=== PATIENT | female | born 1980 | race Caucasian/White ===

== ENCOUNTER 2021-08-18 00:37 | Day surgery (SDC) | payer BC, SELFPAY ==
[2021-08-12 13:34] VITALS: BMI 39.9
--- NOTE | 2021-08-12 13:45 | PC.NURSE ---
Report to the Outpatient Waiting Room, entrance under the green pavilion located off [facility], at time 0845 on date 08/18/21. OR Time: 0945. - You and your visitor will be asked a series of questions to screen for COVID 19 for your protection. - A mask is required within the hospital. One visitor will be allowed to accompany the patient into the hospital. Patients visitor will be instructed to remain with patient at all times or leave the building. We will allow the visitor to come back to the postoperative area when patient is ready. Preoperative COVID Testing Requirements: No COVID Test needed if: (proof is required; if not received patient will have Rapid Test prior to entry) - Patient has received COVID Vaccine at least 14 days prior to procedure date or - Patient has positive COVID test result within last 90 days of surgery date. COVID Test needed if above criteria is not met Patients may have LIGHT BREAKFAST MORNING OF SURGERY Take the following medications with a SIP of water the morning of surgery: PRESCRIBED Medications to discontinue per physician: N/A Date to take last dose: N/A Please no make-up, nail faroese, hairspray, perfume, deodorant, or body powder the day of surgery. No jewelry (including any body piercings) or valuables the day of surgery, leave them at home. Please take a shower or bath the night before, or the morning of, surgery with an antibacterial soap. Wear comfortable, loose fitting clothing. - Jewelry must be removed prior to entering the operating room. Rings and piercings that are not removed may be cut off. - The hospital will not accept responsibility for valuables. - Please leave all valuables, including medications, at home the day of surgery. YOU MAY DRIVE YOURSELF HOME AFTER SURGERY Follow any additional instructions given to you from your surgeon. Telephone instructions given to CESAR WOODY and asked if any additional questions and then verbalized understanding. Patient advised to call surgeon office or pre surgery nurse liaison [phone] if any additional questions.
--- NOTE | 2021-08-18 07:16 | WPDHPUPDATE1 ---
History and Physical Update Update Date/Time: 08/18/21 07:16 History and Physical has been reviewed, including an updated exam of the patient. There are NO changes in the patient's condition. Risks, benefits, and alternatives have been discussed and questions answered. Patient agrees to proceed with procedure.
[2021-08-18 10:46] VITALS: BP 150/91; PULSE 92; RESP 16; TEMP 36.5; O2SAT 100
[2021-08-18 11:59] VITALS: BP 145/85; PULSE 86; RESP 17; O2SAT 100
[2021-08-18 12:10] VITALS: BP 162/92; PULSE 91; RESP 17; O2SAT 100
[2021-08-18 12:20] VITALS: BP 145/85; PULSE 70; RESP 17; O2SAT 98
[2021-08-18 12:31] VITALS: BP 97/55; PULSE 67; RESP 17; O2SAT 98
[2021-08-18 12:40] VITALS: BP 111/72; PULSE 78; RESP 18; O2SAT 99
--- NOTE | 2021-08-18 13:12 | W.PM.PROC2 ---
Procedure Note - Detailed Date of Procedure 08/18/21 Pre-op Diagnosis Rt Carpal Tunnel Syndrome Post-op Diagnosis Same Procedure Performed Right open carpal tunnel release Surgeon Gerardo Robledo MD Anesthesia Local Description of Procedure The right volar wrist was marked with the patient in the holding area. She was taken to the operating room where she was placed supine on the operating table. A time-out was held confirmed. The extremity was prepped and draped usual fashion. The site was marked for the incision and locally infiltrated with 1% lidocaine with epinephrine. The tourniquet was applied and inflated to 250 mmHg. The incision was made as marked and dissection was carried bluntly through the subcutaneous tissue to the palmar aponeurosis. This and the transverse retinaculum were incised with a 15 blade. Under 3 point retraction the ligament was divided distally and proximally to completely release it. There was no unusual anatomy noted. The wound was closed with interrupted 5 0 nylon suture. A small bandage applied as usual. She is discharge instructions wound care follow-up she has a prescription for hydrocodone/[id number] number 7 Estimated Blood Loss 2 Drains No Packing No Pathology None sent Complications No immediate complications Condition Stable Disposition Same day
== END 2021-08-18 13:01 | disposition home or self-care (01) ==
PROVIDERS: PCP Nurse Practitioner Family; Visit Provider Plastic Surgery
PROC: (CPT 64721; principal; 2021-08-18 11:45)
DX: G56.01 Carpal tunnel syndrome, right upper limb (principal); G40.909 Epilepsy, unspecified, not intractable, without status epilepticus
CPT/HCPCS: 64721; A9270

== ENCOUNTER 2021-09-08 01:12 | Day surgery (SDC) | payer BC, SELFPAY ==
[2021-09-05 11:24] VITALS: BMI 39.9
--- NOTE | 2021-09-05 11:28 | PCDIET ---
Report to the Outpatient Waiting Room, entrance under the green pavilion located off [facility], at time __1215_ on date _09-08-21. OR Time: _1315_. - You and your visitor will be asked a series of questions to screen for COVID 19 for your protection. - Only one visitor is allowed at this time. - The patient visitor is requested to leave or wait in car when not with patient. - A mask is required within the hospital. Eat breakfast and a light lunch. Take the following medications with a SIP of water the morning of surgery: ___Take meds as usually do Medications to discontinue per physician None Date to take last dose Please no make-up, nail sinhala, hairspray, perfume, deodorant, or body powder the day of surgery. No jewelry (including any body piercings) or valuables the day of surgery, leave them at home. Please take a shower or bath the night before, or the morning of, surgery with an antibacterial soap. Wear comfortable, loose fitting clothing. Children are encouraged to wear pajamas. - Jewelry must be removed prior to entering the operating room. Rings and piercings that are not removed may be cut off. - The hospital will not accept responsibility for valuables. - Please leave all valuables, including medications, at home the day of surgery. If you are going home after surgery, a licensed day haul or farm charter bus driver must drive you home. - NO public transportation without another adult. - We recommend that an adult stay with you for 24 hours following discharge. - We also recommend that you do not drive, make important decision, drink alcoholic beverages, or take any drugs that were not prescribed by your health care provider for at least 24 hours after your discharge time. For Pediatric surgeries, we recommend two adults accompany the child home (only one inside the building at this time). Follow any additional instructions given to you from your surgeon. If you or anyone in your household have experienced Covid symptoms in the past week, please notify your surgeon or the nurse liaison at the phone number below for possible testing. Telephone instructions given to ___Patient and asked if any additional questions and then verbalized understanding. Patient advised to call surgeon office or pre surgery nurse liaison [phone] if any additional questions.
[2021-09-08] VITALS (8 sets, daily range): BP systolic 134–151; BP diastolic 78–92; PULSE 92–99; RESP 16–20; TEMP 36.1; O2SAT 97–100
--- NOTE | 2021-09-08 07:15 | WPDHPUPDATE1 ---
History and Physical Update Update Date/Time: 09/08/21 07:15 History and Physical has been reviewed, including an updated exam of the patient. There are NO changes in the patient's condition. Risks, benefits, and alternatives have been discussed and questions answered. Patient agrees to proceed with procedure.
[2021-09-08] MEDS: LIDO 1%/EPINEPHRINE 1:100,000 50 ML VIAL 7 ML INFILTRATE (12:36)
--- NOTE | 2021-09-08 13:41 | W.PM.PROC2 ---
Procedure Note - Detailed Date of Procedure 09/08/21 Pre-op Diagnosis Left carpal tunnel syndrome Post-op Diagnosis Same Procedure Performed Left open carpal tunnel release Surgeon Gerardo Robledo MD Anesthesia Local Description of Procedure The left carpal canal was marked on patient holding area. She was then taken to the operating room where she was placed supine on the operating table. Time-out was held and confirmed. The extremity was prepped and draped in usual fashion. The tourniquet was applied but not utilized. The site was marked for the incision and locally infiltrated with 1% lidocaine with epinephrine. Sometimes allowed for hemostatic effect. The incision was made as marked and dissection was carried bluntly through the subcutaneous tissue to the palmar aponeurosis. This was incised with scissors. There was a layer of fatty tissue beneath that that was bluntly. The transverse retinaculum was identified and incised with a 15. Blade. With 3 point retraction and placed the ligament was divided distally and then proximally for complete release. There was no unusual anatomy noted. The wound was closed with interrupted 5 0 nylon suture. The patient is being discharged home with instructions in wound care and follow-up. She has a prescription for hydrocodone 5/325 7.. Estimated Blood Loss 3 Tourniquet Time 0 Drains No Packing No Pathology None sent Complications No immediate complications Condition Stable Disposition Same day
== END 2021-09-08 14:13 | disposition home or self-care (01) ==
PROVIDERS: PCP Nurse Practitioner Family; Visit Provider Plastic Surgery
PROC: (CPT 64721; principal; 2021-09-08 13:00)
DX: G56.02 Carpal tunnel syndrome, left upper limb (principal); M79.89 Other specified soft tissue disorders; M79.642 Pain in left hand; M79.641 Pain in right hand; R20.2 Paresthesia of skin; G40.909 Epilepsy, unspecified, not intractable, without status epilepticus; K21.9 Gastro-esophageal reflux disease without esophagitis
CPT/HCPCS: 64721; A9270

== ENCOUNTER 2021-09-24 15:25 | Observation (INO) | payer BC, SELFPAY ==
--- NOTE | ~2021-09-24 | CT_ITS ---
EXAMINATION: CT abdomen pelvis wo con DATE: 09/24/2021 16:07 INDICATION: Right lower quadrant abdominal pain and nausea. TECHNIQUE: Computed tomography (CT) of the abdomen and pelvis was performed without intravenous contr ast. The dose-length product was 1339.82 mGy-cm. Automated exposure control and iterative reconstruct ion technique were employed. COMPARISON: None. FINDINGS: Lung bases are unremarkable. Heart size normal. No significant pleural or pericardial effus ion. No significant vascular abnormality. No lymphadenopathy. There is diffuse hepatic steatosis. The spleen, pancreas, adrenal glands and kidneys are unremarkable . Gallbladder is present. Nonobstructive bowel gas pattern. The appendix is mildly thickened with per iappendiceal inflammation, consistent with acute uncomplicated appendicitis. Status post hysterectomy . No abnormal pelvic masses or fluid collections. No free air. Mild osteoarthritis of the hips. IMPRESSION: 1. Acute uncomplicated appendicitis. Reviewed, dictated and finalized at location A.
[2021-09-24 15:32] VITALS: BP 146/102; PULSE 126; RESP 16; TEMP 36.4; O2SAT 99
[2021-09-24 15:58] LABS: Basophils Percent Auto 0.2 % (0.2-1.2); Eosinophils Percent Auto 0.1 % (0-4.4); Hematocrit 40.5 % (37.0-47.0); Hemoglobin 13.6 g/dL (12.0-15.0); Immature Granulocyte Absolute 0.07 K/mm3 (0.00-0.031); Immature Granulocyte Percent A 0.4 % (0-0.5); Lymphocytes Absolute Auto 1.95 K/mm3 (0.9-3.2); Lymphocytes Percent Auto 11.1 % (18.3-44.2); Mean Corpuscular HGB Conc 33.6 g/dl (32-36); Mean Corpuscular Hemoglobin 30.8 pg (26-34); Mean Corpuscular Volume 91.8 fl (80-100); Mean Platelet Volume 8.7 fl (7.4-10.4); Monocytes Absolute Auto 0.7 K/mm3 (0.1-0.6); Monocytes Percent Auto 3.8 % (2.6-8.5); Neutrophils Absolute Auto 14.8 K/mm3 (1.3-6.7); Neutrophils Percent Auto 84.4 % (45.5-73.1); Platelet Count Result 420 k/mm3 (150-375); Red Blood Count 4.41 M/mm3 (4.2-5.4); Red Cell Distribution Width 12.1 % (11.5-14.5); White Blood Count 17.5 K/mm3 (4.5-10.0)
[2021-09-24 16:09] LABS: Alanine Aminotransferase 57 U/L (6-35); Albumin Level 4.6 g/dL (3.5-5.1); Alkaline Phosphatase 112 U/L (38-126); Anion Gap 10 mmol/L (8-16); Aspartate Amino Transferase 52 U/L (14-36); Bilirubin,Total 0.7 mg/dL (0.2-1.3); Blood Urea Nitrogen 8 mg/dL (7-17); Calcium 9.3 mg/dL (8.4-10.2); Carbon Dioxide 26 mmol/L (22-30); Chloride 99 mmol/L (98-107); Estimated CRCL calculation 108 ml/min; Estimated Glomerular Filt Rate > 60; Glucose 121 mg/dL (65-110); Lipase 41 U/L (23-300); Potassium 4.1 mmol/L (3.4-5.0); Sodium 135 mmol/L (137-145)
[2021-09-24] MEDS: LACTATED RINGERS 1,000 ML 999 ML IV CONT ×2 (16:11→16:46)
[2021-09-24 16:13] LABS: Appearance Urine Clear (Clear); Bilirubin Urine Negative (Negative); Blood Urine Trace-lysed (Negative); Color Urine Yellow (Yellow); Glucose Urine UA Negative (Negative); Ketones Urine Negative (Negative); Leukocyte Esterase Ur Negative LEU/UL (Negative); Nitrate Urine Negative (Negative); Protein Urine 1+ mg/dL (Negative); Urobilinogen Urine 0.2 mg/dL (<2.0)
[2021-09-24] MEDS: ONDANSETRON INJ 4 MG/2 ML VIAL IV PUSH (16:15)
--- NOTE | 2021-09-24 16:15 | ED.ABDPAIN ---
HPI - Abdominal Pain General Chief Complaint: Abdominal Pain Stated Complaint: abdominal pain - RLQ tenderness Time Seen by Provider: 09/24/21 15:45 History of Present Illness HPI narrative: Since last night, patient had some severe periumbilical pain that was nonradiating, felt like she was just hungry, with some nausea and loose stools, and then this morning the pain seemed to move to the right lower quadrant, worse when she lies flat, never had pain like this before. States that when she urinates she also has this pain. Related Data Home Medications Medication Instructions Recorded Confirmed levetiracetam 1,000 mg tablet 1,000 mg PO DAILY 03/17/21 09/08/21 (Keppra) levetiracetam 500 mg tablet 500 mg PO DAILY 03/17/21 09/08/21 (Keppra) Allergies Allergy/AdvReac Type Severity Reaction Status Date / Time No Known Allergies Allergy Verified 09/24/21 15:46 Review of Systems Review of Systems: CONST: No fever. HEENT: No sore throat C/V: No chest pain RESP: No cough GI: Reports abdominal pain, nausea : dysuria. M/S: No joint pain. SKIN: No rash. NEURO: [No headache or focal numbness or weakness] PSYCH: [No depression] [facility] Past Medical History Medical History Anxiety with depression BMI 37.0-37.9, adult BMI over 35 Carpal tunnel syndrome Cervical radicular pain Cervicalgia Elevated C-reactive protein (CRP) (08/06/20) CRP elevated at 23.6 with normal less than 8 08/06/2020 Elevated sedimentation rate (08/06/20) level elevated at 25 on 08/06/2020 Encounter to establish care Lumbago with sciatica, right side Nasal congestion Seizures Family History Family History Father No problems noted. Social History Social History Smoking packs per day: 2 Smoking cigarettes per day: 40.0 Years smoked: 25 Smoking pack-years: 50.00 Smoking status: Former smoker Tobacco type: cigarettes Smoking end date: 04/07/19 Alcohol intake: never Alcohol use details: rarely Substance use: never Substance use type: does not use Spiritual care concerns: No Exam Narrative: EXAMINATION OF ORGAN SYSTEMS/BODY AREAS: Constitutional: Vital signs per nursing GENERAL: Resting comfortably in bed, very talkative HEAD: Normal with no signs of head trauma. EYES: EOMI, conjunctiva normal ENT: Hearing grossly intact LUNGS: Nonlabored breathing. HEART: Tachycardic ABD: [Soft], [tender to palpation] right lower quadrant EXT: Normal range of motion SKIN: [No rashes or lesions.] NEURO: [Alert and oriented x 3. No gross focal sensory or strength deficits.] PSYCH: Normal affect Course Course Emergency Course: 41-year-old female presenting right lower quadrant pain, vital signs tachycardic, exam showing well-appearing patient with right lower quadrant tenderness, concern for appendicitis versus UTI, she is given pain medication and antiemetic with improvement in symptoms, and IV fluids, CT does show appendicitis, case discussed with surgeon Dr. Guevara will admit patient for likely surgery tomorrow, patient updated on plan and diagnosis. Vital Signs Vital signs: Vital Signs Temperature 97.6 F 09/24/21 15:32 Pulse Rate 126 H 09/24/21 15:32 Respiratory Rate 16 09/24/21 15:32 Blood Pressure 146/102 H 09/24/21 15:32 Pulse Oximetry 99 09/24/21 15:32 Oxygen Delivery Room Air 09/24/21 15:32 Temperature 97.6 F 09/24/21 15:32 Pulse Rate 126 H 09/24/21 15:32 Respiratory Rate 16 09/24/21 15:32 Blood Pressure 146/102 H 09/24/21 15:32 Pulse Oximetry 99 09/24/21 15:32 Oxygen Delivery Room Air 09/24/21 15:32 MDM - Abdominal Pain Differential Diagnosis Differential diagnosis: Likely acute appendicitis, calculus of kidney, gastroenteritis and other (UTI) Lab Data Result diagrams: 09/24/21 15:51
[2021-09-24 16:31] LABS: Add Urine Microscopic? YES; Bacteria Urine Trace /hpf; Squamous Epithelial Cell Urine Few /hpf (Few); WBC Urine 0-3 /hpf
[2021-09-24 16:39] LABS: INR 1.1; Prothrombin Time 13.3 Seconds (11.1-14.7)
[2021-09-24] MEDS: MORPHINE SULFATE (*CRX) 4 MG/ML INJ IV PUSH ×3 (16:45→20:48)
[2021-09-24] MEDS: metroNIDAZOLE 500 MG/ISO 100ML 500 MG/100 ML BAG 100 MG IVPB (16:46)
[2021-09-24 16:50] VITALS: BP 130/88; PULSE 106; RESP 16; O2SAT 98
[2021-09-24 17:39] LABS: Lactic Acid Reflex 3.1 mmol/L (0.7-2.0)
--- NOTE | 2021-09-24 17:53 | WPDANESEPP ---
Anes - Eval Pre Procedure Date/Time: 09/24/21 17:53 Pre Op Diagnosis: abdominal pain - RLQ tenderness Patient Data Age: 41 Gender: F Height: 1.65 m Weight: 106.8 kg Last Vital Signs Temp 36.4 C 09/24/21 15:32 Pulse 106 H 09/24/21 16:50 Resp 16 09/24/21 16:50 BP 130/88 09/24/21 16:50 Pulse Ox 98 09/24/21 16:50 O2 Del Method Room Air 09/24/21 15:32 Allergies Allergy/AdvReac Type Severity Reaction Status Date / Time No Known Allergies Allergy Verified 09/24/21 15:46 Home Medications Medication Instructions Recorded Confirmed Type duloxetine 60 mg capsule,delayed 60 mg PO DAILY #30 caps 03/17/21 09/08/21 Rx release (Cymbalta) levetiracetam 1,000 mg tablet 1,000 mg PO DAILY 03/17/21 09/08/21 History (Keppra) levetiracetam 500 mg tablet 500 mg PO DAILY 03/17/21 09/08/21 History (Keppra) cyclobenzaprine 10 mg tablet 10 mg PO BID PRN muscle spasm #60 06/30/21 09/05/21 Rx tabs hydrocodone 5 mg-acetaminophen 325 1 tablet PO Q6H PRN pain #7 tabs 09/08/21 Rx mg tablet tramadol 50 mg tablet 50 mg PO Q6H PRN pain #60 tabs 09/23/21 Rx Laboratory Tests 09/24/21 09/24/21 09/24/21 15:51 15:51 15:56 WBC 17.5 K/mm3 H K/mm3 (4.5-10.0) RBC 4.41 M/mm3 M/mm3 (4.2-5.4) Hgb 13.6 g/dL g/dL (12.0-15.0) Hct 40.5 % % (37.0-47.0) MCV 91.8 fl fl (80-100) MCH 30.8 pg pg (26-34) MCHC 33.6 g/dl g/dl (32-36) RDW 12.1 % % (11.5-14.5) Plt Count 420 k/mm3 H k/mm3 (150-375) MPV 8.7 fl fl (7.4-10.4) Immature Gran % (Auto) 0.4 % % (0-0.5) Neut % (Auto) 84.4 % H % (45.5-73.1) Lymph % (Auto) 11.1 % L % (18.3-44.2) Monona % (Auto) 3.8 % % (2.6-8.5) Eos % (Auto) 0.1 % % (0-4.4) Baso % (Auto) 0.2 % % (0.2-1.2) Lymph # (Auto) 1.95 K/mm3 K/mm3 (0.9-3.2) [place] # (Auto) 0.7 K/mm3 H K/mm3 (0.1-0.6) Eos # (Auto) 0.0 K/mm3 K/mm3 (0-0.3) Baso # (Auto) 0.0 K/mm3 K/mm3 (0.0-0.1) Abs Immat Gran (auto) 0.07 K/mm3 H K/mm3 (0.00-0.031) Absolute Neuts (auto) 14.8 K/mm3 H K/mm3 (1.3-6.7) Absolute Nucleated RBC 0.0 K/mm3 K/mm3 (0.0-0.012) Nucleated RBC % 0.0 % % (0.0-0.2) PT INR APTT Sodium 135 mmol/L L mmol/L (137-145) Potassium 4.1 mmol/L mmol/L (3.4-5.0) Chloride 99 mmol/L mmol/L (98-107) Carbon Dioxide 26 mmol/L mmol/L (22-30) Anion Gap 10 mmol/L mmol/L (8-16) BUN 8 mg/dL mg/dL (7-17) Creatinine 0.70 mg/dL mg/dL (0.7-1.0) Estim Creat Clear Calc 108 ml/min ml/min Estimated GFR > 60 (59 - ) Glucose 121 mg/dL H mg/dL (65-110) Lactic Acid Calcium 9.3 mg/dL mg/dL (8.4-10.2) Total Bilirubin 0.7 mg/dL mg/dL (0.2-1.3) AST 52 U/L H U/L (14-36) ALT 57 U/L H U/L (6-35) Alkaline Phosphatase 112 U/L U/L (38-126) Total Protein 9.0 g/dL H g/dL (6.3-8.2) Albumin 4.6 g/dL g/dL (3.5-5.1) Lipase 41 U/L U/L (23-300) Urine Color Yellow (Yellow) Urine Appearance Clear (Clear) Urine pH 6.0 (5.0-9.0) Ur Specific Benson 1.010 (1.001-1.035) Urine Protein 1+ mg/dL H mg/dL (Negative) Urine Glucose (UA) Negative mg/dL mg/dL (Negative) Urine Ketones Negative mg/dL mg/dL (Negative) Ur Blood (Man) Trace-lysed (Negative) Urine Nitrate Negative (Negative) Urine Bilirubin Negative (Negative) Urine Urobilinogen 0.2 mg/dL mg/dL (<2.0) Leukocyte Esterase Rfl Negative BRYAN/UL BRYAN/UL (Negative) Urine WBC 0-3 /hpf /hpf Ur Squamous Epith Cells Few /hpf /hpf
[2021-09-24 18:10] VITALS: BP 150/95; PULSE 107; RESP 18; O2SAT 98
[2021-09-24 18:38] VITALS: BP 150/95; PULSE 107; RESP 18; O2SAT 98
[2021-09-24 18:58] VITALS: BMI 38.5
[2021-09-24 19:34] VITALS: BP 130/84; PULSE 108; RESP 18; TEMP 36.3; O2SAT 98
[2021-09-24 20:25] LABS: Reflex Lactic Acid Yes or No Add Lactic
[2021-09-24] MEDS: LACTATED RINGERS 1,000 ML 125 ML IV CONT (20:49)
[2021-09-24 20:54] LABS: Lactic Acid 1.7 mmol/L (0.7-2.0)
[2021-09-25] VITALS (14 sets, daily range): BP systolic 102–175; BP diastolic 55–112; PULSE 65–100; RESP 16–20; TEMP 35.9–36.9; O2SAT 92–100
[2021-09-25] MEDS: MORPHINE SULFATE (*CRX) 4 MG/ML INJ IV PUSH ×3 (00:39→08:30)
[2021-09-25] MEDS: LACTATED RINGERS 1,000 ML 125 ML IV CONT (03:12)
--- NOTE | 2021-09-25 08:48 | PM.IMHP ---
H&P: HPI History of Present Illness Date/Time: 09/25/21 08:48 Chief Complaint: Right lower quadrant pain. Narrative: This is a 41-year-old woman who presented to the emergency department yesterday with right lower quadrant pain that started 09/23/2021. She states that she began feeling hunger pains in then she noticed pain localized to the right lower quadrant. She was having some chills and nausea, but denies any vomiting or change in bowel habits. She has never experienced anything like this in the past. In the emergency department she was noted to have an elevated white blood count and CT showed evidence of acute appendicitis. She was started on Zosyn and was admitted to the hospital for further treatment. Review of Systems Review of Systems: All systems reviewed & are unremarkable except as noted in HPI and below Constitutional: Constitutional: Reports chills and Denies fever(s) Eyes: Eyes: Denies change in vision ENT: Denies hearing loss, Denies neck pain and Denies sore throat Cardiovascular: Cardiovascular: Denies chest pain and Denies dyspnea Respiratory: Respiratory: Denies cough, Denies dyspnea and Denies wheezing Gastrointestinal: Gastrointestinal: Reports as per HPI Genitourinary: Genitourinary: Denies hematuria and Denies dysuria Musculoskeletal: Musculoskeletal: Denies arthralgias, Denies joint swelling and Denies neck pain Allergic/Immunologic: Allergic/Immunologic: Denies wheezing [facility] Past Medical History Medical History (Updated 09/25/21 @ 08:53 by Charles Guevara DO) Anxiety with depression BMI over 35 Carpal tunnel syndrome Cervical radicular pain Cervicalgia Elevated C-reactive protein (CRP) (08/06/20) CRP elevated at 23.6 with normal less than 8 08/06/2020 Elevated sedimentation rate (08/06/20) level elevated at 25 on 08/06/2020 Encounter to establish care Lumbago with sciatica, right side Nasal congestion Seizures Surgical History Surgical History (Updated 09/25/21 @ 08:51 by Charles Guevara DO) History of carpal tunnel release History of hysterectomy History of neck surgery Family History Family History (Updated 09/25/21 @ 08:51 by Charles Guevara DO) Father Heart disease Social History Social History Smoking packs per day: 2 Smoking cigarettes per day: 40.0 Years smoked: 25 Smoking pack-years: 50.00 Smoking status: Former smoker Tobacco type: cigarettes Second hand tobacco smoke exposure: Yes Alcohol intake: never Alcohol use details: rarely Substance use: never Substance use type: does not use Spiritual care concerns: No Meds Home Medications and Allergies Home Medications Medication Instructions Recorded Confirmed Type Unisom (diphenhydramine) 100 mg PO HS 09/24/21 09/24/21 History cyclobenzaprine 10 mg tablet 1 tablet PO BID PRN Muscle 09/24/21 09/24/21 History Spasticity duloxetine 60 mg capsule,delayed 60 mg PO DAILY 09/24/21 09/24/21 History release levetiracetam 750 mg tablet 2 tablet PO DAILY 09/24/21 09/24/21 History Allergies Allergy/AdvReac Type Severity Reaction Status Date / Time No Known Allergies Allergy Verified 09/24/21 15:46 Vital Signs Vital Signs - 24 hr 09/24/21 15:32 09/24/21 16:50 09/24/21 18:10 Temperature 36.4 C Pulse Rate 126 H 106 H 107 H Respiratory Rate 16 16 18 Blood Pressure 146/102 H 130/88 150/95 H Pulse Oximetry 99 98 98 Oxygen Delivery Room Air 09/24/21 18:38 09/24/21 19:34 09/25/21 04:10 Temperature 36.3 C L 36.0 C L Pulse Rate 107 H 108 H 97 Respiratory Rate 18 18 17 Blood Pressure 150/95 H 130/84 156/97 H Pulse Oximetry 98 98 94 Oxygen Delivery 09/25/21 08:32 09/25/21 08:45 Temperature Pulse Rate Respiratory Rate Blood Pressure 168/90 H Pulse Oximetry 96 Oxygen Delivery Room Air Exam Const: General: alert; No acute distress Orientation/conscio
--- NOTE | 2021-09-25 10:21 | P.PNAN_ITS ---
Anes - Eval Final PreProcedure Day of Procedure 09/25/21 10:21 Patient weight: obese Heart: regular rate and rhythm Lungs: clear to auscultation Airway: Mallampati scale class II and other (C3-7 disc replacement) Neurological: alert and oriented Last oral intake: >/= 8 hours ASA classification: III Emergent: no Anesthetic plan: proceed Anesthesia type and monitoring: general ETT and standard monitoring Results Review: All pre-operative results and documents have been reviewed as part of the pre- operative evaluation. Informed Consent: The patient's anesthetic plan and its attendant risks and benefits were discussed with the patient/family/POA. Questions were solicited and answers provided to the satisfaction of the patient/family/POA.
[2021-09-25] MEDS: LIDO 1%/EPINEPHRINE/PF 1:200,000 30 ML VIAL XX (10:42)
--- NOTE | 2021-09-25 11:18 | W.PM.PROC2 ---
Procedure Note - Detailed Date of Procedure 09/25/21 Pre-op Diagnosis Acute appendicitis, sepsis Post-op Diagnosis Same Procedure Performed Laparoscopic appendectomy Surgeon Charles Guevara, DO Anesthesia General and Local (0.5% bupivicaine with epinephrine) Indications This is a 41-year-old woman who presented to the emergency department on 09/24/2021 with complaints of right lower quadrant pain that started 1 day prior. She was noted to have signs of sepsis with an elevated white blood count and tachycardia. CT showed evidence of acute appendicitis. She was admitted and placed on IV Zosyn. Discussions were made with the patient about treatment options and decision was made to proceed with laparoscopic appendectomy, possible open. Findings Laparoscopic appendectomy was performed. The appendix was in a slightly retrocecal location and appeared to be curled behind the cecum. It appeared dilated and inflamed. The base of the appendix appeared healthy and viable. The appendix was removed and sent to the lab for pathology. There was some bleeding from the mesoappendix as the appendix was removed. Initially this was controlled with a 5 mm clip clinical biostatistics director over the staple line where the bleeding was noted. There still seemed to be some mild oozing from this location but there was no more pulsatile bleeding. Surgiflo was then sprayed over this area to help control bleeding. Hemostasis then appeared adequate. Description of Procedure Procedure as well as risks, benefits, and alternatives were explained to the patient. The patient agreed to proceed. Written consent was obtained and placed in chart prior to procedure. The patient was brought back to surgical suite. She was placed supine on operating table. Time-out was done to confirm the patient and procedure. The patient was then intubated by the Anesthesia Department. Her abdomen was prepped and draped in sterile fashion using chlorhexidine prep. A 5 mm incision was made just to the left of the patient's umbilicus and a 5 mm Optiview trocar was advanced through the abdominal layers under direct visualization. Once inside the peritoneal cavity, carbon dioxide insufflation was used to create a pneumoperitoneum. The camera was inserted and the abdomen was inspected. No immediate abnormalities were identified. The patient was then placed in slight Trendelenburg position and rotated to the left. A 5 mm incision was made in the suprapubic region in midline and a 5 mm trocar was inserted under direct visualization. A 12 mm incision was made in the left lower quadrant and a 12 mm trocar was inserted under direct visualization. The right lower quadrant was carefully inspected. The cecum was identified and then this was traced back to the appendix. The appendix was identified and grasped at the mesoappendix and lifted anteriorly. Careful blunt dissection was carried out at the base of the appendix through the mesoappendix using a [place] grasper. An Endo-JENNIFER 45 mm blue load stapler was then advanced across the base of the appendix and clamped and fired. A white reload was then clamped across the mesoappendix and fired. This freed up our appendix completely. It was then placed in an EndoCatch bag and removed through the left lower quadrant port. The staple lines were then inspected. There was bleeding along the mesoappendix staple line. A 5 mm Endoclip clinical biostatistics director was then used to place several clips along the mesoappendix staple line to help control bleeding. Surgiflo was then sprayed over the staple line. Hemostasis appeared adequate and the staple lines appeared secure. The area was then irrigated with sterile saline. The pelvis was then carefully inspected and irrigated with sterile saline as well and the remainder of the abdomen was carefully inspected. The patient was then flattened out in bed. One final inspection was made around the abdominal cavity and no other abnormalities were seen. The left lower
[2021-09-25] MEDS: LACTATED RINGERS 1,000 ML 30 ML IV CONT (11:21)
--- NOTE | 2021-09-25 11:24 | PM.DS ---
DS: Admitting Diagnosis Discharge Date 09/25/2021 Admitting Diagnosis Acute appendicitis, sepsis DS: Discharge Diagnosis Discharge Diagnosis (1) Acute appendicitis: Qualifiers: Acute appendicitis type: with localized peritonitis Appendicitis gangrene presence: without gangrene Appendicitis perforation presence: without perforation Appendicitis abscess presence: without abscess Qualified Code(s): K35.30 - Acute appendicitis with localized peritonitis, without perforation or gangrene Code(s): K35.80 - Unspecified acute appendicitis Status: Acute (2) Sepsis: Code(s): A41.9 - Sepsis, unspecified organism Status: Acute (3) Adult BMI 38.0-38.9 kg/sq m: Code(s): Z68.38 - Body mass index [BMI] 38.0-38.9, adult Status: Acute DS: Summary Hospital Course Reason for hospitalization: Acute appendicitis Hospital Course: This is a 41-year-old woman who presented to the emergency department on 09/24/2021 with right lower quadrant abdominal pain. She was noted to have signs of sepsis and CT showed evidence of acute appendicitis. She was placed on Zosyn and admitted to the hospital. She then underwent laparoscopic appendectomy on 09/25/2021. She was returned to the surgical floor postoperatively. Diet and activity were advanced as tolerated. She was discharged once her pain was adequately controlled, vitals remained stable, she was tolerating a regular diet, and ambulating in the halls. Status at Discharge Functional status at discharge: independent ambulation Overall status at discharge: patient is progressing back to baseline Time Spent with Patient Time attestation: Total time spent providing and/or coordinating discharge services: Time spent: Less than 30 minutes Exam Narrative: Unchanged from preop exam DS: Data Data Completed and Pending Pending studies at discharge: Pending at discharge 09/25/21 10:52 Surgical [PTH] Routine Labs on day of discharge: Labs from last 24 hours 09/24/21 09/24/21 09/24/21 20:31 16:28 16:21 WBC RBC Hgb Hct MCV MCH MCHC RDW Plt Count MPV Immature Gran % (Auto) Neut % (Auto) Lymph % (Auto) [place] % (Auto) Eos % (Auto) Baso % (Auto) Lymph # (Auto) [place] # (Auto) Eos # (Auto) Baso # (Auto) Abs Immat Gran (auto) Absolute Neuts (auto) Absolute Nucleated RBC Nucleated RBC % PT INR APTT Sodium Potassium Chloride Carbon Dioxide Anion Gap BUN Creatinine Estim Creat Clear Calc Estimated GFR Glucose Lactic Acid 1.7 3.1 H Calcium Total Bilirubin AST ALT Alkaline Phosphatase Total Protein Albumin Lipase Urine Color Urine Appearance Urine pH Ur Specific [place] Urine Protein Urine Glucose (UA) Urine Ketones Ur Blood (Man) Urine Nitrate Urine Bilirubin Urine Urobilinogen Leukocyte Esterase Rfl Urine WBC Ur Squamous Epith Cells Urine Bacteria Blood Type B Positive Antibody Screen Negative 09/24/21 09/24/21 09/24/21 16:20 15:56 15:51 WBC RBC Hgb Hct MCV MCH MCHC RDW Plt Count MPV Immature Gran % (Auto) Neut % (Auto) Lymph % (Auto) [place] % (Auto) Eos % (Auto) Baso % (Auto) Lymph # (Auto) [place] # (Auto) Eos # (Auto) Baso # (Auto) Abs Immat Gran (auto) Absolute Neuts (auto) Absolute Nucleated RBC Nucleated RBC % PT 13.3 INR 1.1 APTT 25.0 Sodium 135 L Potassium 4.1 Chloride 99 Carbon Dioxide 26 Anion Gap 10 BUN 8 Creatinine 0.70 Estim Creat Clear Calc 108 Estimated GFR > 60 Glucose 121 H Lactic Acid Calcium 9.3 Total Bilirubin 0.7 AST 52 H ALT 57 H Alkaline Phosphatase 112 Total Protein 9.0 H Albumin 4.6 Lipase 41 Urine Color Yellow Urine Appearance C
[2021-09-25] MEDS: hydrALAZINE HCL 20 MG/ML VIAL 10 MG IV PUSH (11:40)
[2021-09-25] MEDS: levETIRAcetam 500 MG TABLET 1500 MG PO (14:13)
[2021-09-25] MEDS: DULoxetine HCL 60 MG CAPSULE.DR PO (14:13)
[2021-09-25] MEDS: ONDANSETRON INJ 4 MG/2 ML VIAL IV PUSH (15:29)
[2021-09-25] MEDS: HYDROcodone/acetaminophen (*CRX) 7.5-325 MG TABLET 1 TAB PO (15:29)
== END 2021-09-25 17:58 | disposition home or self-care (01) ==
LOC: ANHED 16:30 → ANH2MED 18:24
PROVIDERS: Emergency Medicine; Admitting Provider Surgery; Emergency Provider Emergency Medicine; PCP Nurse Practitioner Family; Visit Provider Surgery
PROC: 0DTJ4ZZ Resection of Appendix, Percutaneous Endoscopic Approach (ICD-10-PCS; CPT 44970; principal; 2021-09-25 12:00)
DX: K35.30 Acute appendicitis with localized peritonitis, without perforation or gangrene (principal); A41.9 Sepsis, unspecified organism; G40.909 Epilepsy, unspecified, not intractable, without status epilepticus; Z87.891 Personal history of nicotine dependence; Z68.38 Body mass index [BMI] 38.0-38.9, adult
CPT/HCPCS: 44970; 36415; 74176; 80053; 81001; 83605; 83690; 85025; 85610; 85730; 86850; 86900; 86901; 87040; 88304; 96361; 96365; 96366; 96367; 96375; 96376; 99285; A9270; G0378; J0330; J0360; J2250; J2270; J2405; J2543; J2704; J2710; J3010; J7030; J7120

== ENCOUNTER 2022-02-02 14:54 | Outpatient (CLI) | payer BC, SELFPAY ==
--- NOTE | ~2022-02-02 | XR_ITS ---
XR hip RT 2V w AP pelvis 02/02/2022 15:05 INDICATION: Right hip pain for 2 months. PROCEDURE: 3 views right hip COMPARISON: No prior studies for comparison. FINDINGS: Fracture, dislocation or subluxation is not identified. Pelvic rings are intact. The soft t issues appear within normal limits. No foreign bodies are identified. IMPRESSION: 1: NO ACUTE BONE OR JOINT ABNORMALITY IDENTIFIED. Reviewed, dictated and finalized at location A.
== END 2022-02-02 14:55 ==
LOC: MICIMG 14:56
PROVIDERS: PCP Nurse Practitioner Family; Visit Provider Nurse Practitioner Family
DX: M25.551 Pain in right hip (principal)
CPT/HCPCS: 73502

== ENCOUNTER 2022-02-09 13:49 | Outpatient (CLI) | payer BC, SELFPAY ==
--- NOTE | ~2022-02-09 | CT_ITS ---
EXAMINATION: CT soft tissue neck wo/w con DATE: 02/09/2022 14:15 INDICATION: Cervical radicular pain. TECHNIQUE: Computed tomography (CT) of the neck was performed without and with 75 mL Omnipaque-350 in travenous contrast. Automated exposure control and iterative reconstruction technique were employed. The dose-length product was 781.58 mGy-cm. COMPARISON: None FINDINGS: There are no pathologically enlarged lymph nodes. There is 0% stenosis of the proximal inte rnal carotid arteries relative to normal distal artery lumen diameters. There is kyphosis of cervical spine. Vertebral body heights are normal. There are disc replacement from C3-C4 through C6-C7. Inter vertebral disc heights are normal. There is multilevel mild uncovertebral joint osteoarthritis. There is severe facet joint osteoarthritis on the left at C3-C4 and bilaterally at C7-T1. At C3-C4, there is mild left neural foraminal stenosis. No central canal stenosis. IMPRESSION: 1. Disc replacements from C3-C4 through C6-C7. 2. Mild cervical spondylosis. Reviewed, dictated and finalized at location A.
== END 2022-02-09 13:50 ==
LOC: MICIMG 13:51
PROVIDERS: PCP Nurse Practitioner Family; Visit Provider Nurse Practitioner Family
DX: M54.12 Radiculopathy, cervical region (principal); M43.02 Spondylolysis, cervical region
CPT/HCPCS: 70492; Q9967

== ENCOUNTER 2022-11-30 15:16 | Outpatient (CLI) | payer BC, SELFPAY ==
--- NOTE | ~2022-11-30 | CT_ITS ---
EXAMINATION: CT cervical spine wo con DATE: 11/30/2022 15:30 INDICATION: Neck pain. TECHNIQUE: Computed tomography (CT) of the cervical spine was performed without intravenous contrast. Automated exposure control and iterative reconstruction technique were employed. The dose-length pro duct was 333.45 mGy-cm. COMPARISON: Neck CT 02/09/2022 FINDINGS: There is kyphosis of cervical spine. There is 3 degrees dextrocurvature of cervical spine. There are disc replacements from C3-C4 through C6-C7. Other intervertebral disc heights are normal. T he following disc levels are specifically discussed: C2-C3: There is mild bilateral uncovertebral joint osteoarthritis. There is moderate bilateral facet joint osteoarthritis. There is mild left neural foraminal stenosis. There is no central canal stenosi s. C3-C4: There is no uncovertebral joint hypertrophy. There is mild right and severe left facet joint o steoarthritis. There is mild left neural foraminal stenosis. There is mild central canal stenosis. C4-C5: There is no uncovertebral joint hypertrophy. There is mild left facet joint osteoarthritis. Th ere is no neural foraminal stenosis. There is no central canal stenosis. C5-C6: There is no uncovertebral joint hypertrophy. There is no facet joint osteoarthritis. There is no neural foraminal stenosis. There is mild central canal stenosis. C6-C7: There is no uncovertebral joint hypertrophy. There is mild bilateral facet joint osteoarthriti s. There is no neural foraminal stenosis. There is no central canal stenosis. C7-T1: There is no uncovertebral joint osteoarthritis. There is severe bilateral facet joint osteoart hritis. There is mild bilateral neural foraminal stenosis. There is no central canal stenosis. IMPRESSION: 1. Mild cervical spondylosis. 2. Disc replacements from C3-C4 through C6-C7. Reviewed, dictated and finalized at location L.
== END 2022-11-30 15:17 ==
LOC: MICIMG 15:17
PROVIDERS: PCP Nurse Practitioner Family; Visit Provider Nurse Practitioner Family
DX: M54.2 Cervicalgia (principal); M43.02 Spondylolysis, cervical region; Z96.698 Presence of other orthopedic joint implants
CPT/HCPCS: 72125

== ENCOUNTER 2023-03-30 12:30 | Outpatient (RCR) | payer BC, SELFPAY ==
--- NOTE | 2023-02-26 08:08 | OPREHPOC ---
Outpatient Therapy Plan of Care This is a Multidisciplinary Plan of Care that may contain components documented by all disciplines (PT, OT, and ST.) PT Problem 1 PT Problem #1 Knowledge Deficit PT Goal 1 Goal Pt to be IND with issued HEP Target Visit 8 PT Problem 2 PT Problem #2 Pain PT Goal 1 Goal Pt to report low back pain no greater than 3/10 in the last week. Target Visit 8 PT Goal 2 Goal Pt to report 75% improvement in overall symptoms Target Visit 8 PT Problem 3 PT Problem #3 Impaired Range of Motion PT Goal 1 Goal Pt to demonstrate active lumbar ROM that is WNL and without an increase in pain Target Visit 8 PT Problem 4 PT Problem #4 Impaired Functional Mobil PT Goal 1 Goal Pt to demonstrate a functional lift and carry with 20lb without an increase in symptoms. Target Visit 8 PT Goal 2 Goal Pt to report being able to stand for 1 hour without an increase in symptoms. Target Visit 8
--- NOTE | 2023-02-26 08:08 | PTOPEVAL1 ---
Assessment and note entered by Kamila Monroe, PT, DPT Evaluation Information Assessment Status Evaluation Diagnosis low back pain (M54.9) Subjective Information Pt arrived 15 mins late for scheduled evaluation this date. Pt states she is here for her back. She states she also has neck pain but that's not gonna get any better . Pt states about a year ago she noticed a numbness in her thighs, about 2 months pt states she has been limited in how long she can stand. She states that day her pain wrapped around her hip. She states 2 months ago was the first time this happened but now it happens on either side, and more frequently. 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 She states she has been seeing a chiropractor for a month who has been not able to get her adjusted . Pt works at [employer], but is able to sit most of her shift. She states outside of work she does not do anything other than rest. Assessment PT Clinical Summary Frida presents to therapy today for her initial evaluation with a diagnosis of chronic low back pain. Today she demonstrates good LE ROM, decreased lumbar ROM limited by pain, poor corer strength, and decreased functional strength. She demonstrates anterior pelvic posture in standing with a largely increased lumbar lordosis. Skilled therapy services are indicated for pain management , to improve posture, to improve body mechanics, and to promote improved functional mobility. Plan of Care Interventions Electrical Stimulation,Gait Training,Hot Pack/Cold Pack,Manual Therapy,Mechanical Traction,Neuro Re- education,Patient/Caregiver Educati,Therapeutic Activities,Therapeutic Exercise PT Services Indicated Yes Treatment Frequency and 1-2x/wk for 8 visits Duration These treatments will address the objective and functional deficits as defined above. The patient will be advanced safely and appropriately in order for the patient to progress towards his/her prior level of function. Additional exercises will be introduced and as well as a comprehensive home exercise program upon discharge, if needed, ?to ensure carryover of functional gains achieved in the clinic. This treatment plan has been reviewed and agreement upon by the patient.
--- NOTE | 2023-03-16 16:36 | PCPTNOTE ---
Patient appointment cancelled today secondary to overrun of Therapist Physician appointment .
--- NOTE | 2023-03-30 13:29 | PTOPDC ---
Assessment and note entered by Kamila Monroe, PT, DPT Evaluation Information Assessment Status Discharge Diagnosis low back pain (M54.9) Subjective Information Pt states she has been off work for medical leave d/t back pain. She states work has been not very accommodating to this. She states she can stand no longer than 12 minutes at a time, at that time she needs to go sit down for a minute or 2. She states since starting therapy her back has progressively gotten worse. She states her back has been better the last 2 weeks because she has not been on her feel as much. Pt states she would like to go back to the doctor for an MRI. Reported Pain Level Pain Score 3: Self Report Assessment PT Clinical Summary Frida presents to therapy today for her progress report following 4 visits of skilled therapy with a diagnosis of chronic low back pain. Today she reports no improvements in pain since starting therapy. She states she would like to get further imaging prior to continuing therapy as she feels there in something wrong with her back. She will be discharged at this time per her request. Plan of Care PT Services Indicated No
== END 2023-04-24 14:04 | disposition home or self-care (01) ==
LOC: ANHGOSHPT 12:30
PROVIDERS: PCP Nurse Practitioner Family; Visit Provider Nurse Practitioner Family
DX: M54.9 Dorsalgia, unspecified (principal); M54.12 Radiculopathy, cervical region; M54.41 Lumbago with sciatica, right side; M25.50 Pain in unspecified joint; M54.2 Cervicalgia; M79.604 Pain in right leg; M79.605 Pain in left leg; M25.551 Pain in right hip; G89.29 Other chronic pain
CPT/HCPCS: 97012; 97110; 97140; 97161; 97530

== ENCOUNTER 2023-05-28 08:16 | Outpatient (CLI) | payer BC, SELFPAY ==
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
[2023-06-11 12:31] VITALS: BMI 42.0
== END 2023-05-29 07:30 | disposition home or self-care (01) ==
LOC: ANHCSM 08:20
PROVIDERS: PCP Nurse Practitioner Family; Visit Provider Nurse Practitioner Family
DX: G47.33 Obstructive sleep apnea (adult) (pediatric) (principal); R06.3 Periodic breathing; G47.10 Hypersomnia, unspecified
CPT/HCPCS: 95800

== ENCOUNTER 2023-06-28 08:31 | Outpatient (CLI) | payer BC, SELFPAY ==
--- NOTE | 2023-06-28 08:37 | ECHO_ITS ---
Patient Info Name: Frida Melendrez Age: 42 years : 1980 Gender: Female Ht: 65 in Wt: 256 lbs BSA: 2.37 m2 HR: 81 bpm BP: 128 / 80 mmHg Technical Quality: Fair Exam Date: 06/28/2023 8:45 AM Exam Location: Echo Lab Patient Status: Outpatient Admit Date: 06/28/2023 Staff Ordering Physician: Flor Noriega NP Resident Assistant Cna: Attending Provider: Flor Noriega NP Exam Type: CA echo doppler color flow Study Info Indications I10 - Essential (primary) hypertension Complete two-dimensional, color flow and Doppler transthoracic echocardiogram is performed. Summary 1. Complete two-dimensional, color flow and Doppler transthoracic echocardiogram is performed. 2. Left ventricular chamber dimension is normal. 3. Left ventricular systolic function is normal, estimated at 60-65%. 4. The left ventricular diastolic function is grade I diastolic dysfunction. 5. E/e' 6 is not elevated. Left Ventricle E/e' 6 is not elevated. Left ventricular chamber dimension is normal. Left ventricular systolic function is normal, estimated at 60-65%. The left ventricular diastolic function is grade I diastolic dysfunction. Right Ventricle Right ventricular systolic function is normal and with normal TAPSE 2.2 cm. Right ventricular chamber dimension is normal. Left Atria Left atrial chamber dimension is normal. Right Atria Right atrial chamber dimension is normal. Aortic Valve The aortic valve is trileaflet. There is no aortic valve stenosis. There is no aortic valve regurgitation. Pulmonic Valve There is no pulmonic regurgitation. Mitral Valve There is no mitral valve stenosis. There is no mitral valve regurgitation. Tricuspid Valve There is no tricuspid valve regurgitation. Pericardium/Pleural There is no pericardial effusion. Inferior Vena Cava Normal inferior vena cava with >50% collapse upon inspiration consistent with normal right atrial pressure, 5 mmHg. Aorta The aortic root size at the sinus of Valsalva is normal. Left Ventricular Outflow Tract Name Value Normal LVOT 2D LVOT Diameter 2.0 cm LVOT Doppler LVOT Peak Gradient 6 mmHg LVOT Mean Gradient 3 mmHg LVOT VTI 22 cm LVOT VTI/AV VTI Ratio 0.6 LVOT Stroke Volume 69 ml LVOT CO 5.4 l/min LVOT CI 2.3 l/min/m2 Pulmonic Valve Name Value Normal PV Doppler PV Peak Gradient 7 mmHg Mitral Valve Name Value Normal MV Doppler MV Decel Nash 291 cm/s2 MV PHT 77 ms
== END 2023-06-28 08:32 | disposition home or self-care (01) ==
PROVIDERS: PCP Nurse Practitioner Family; Visit Provider Nurse Practitioner Family
DX: G47.33 Obstructive sleep apnea (adult) (pediatric) (principal); R93.1 Abnormal findings on diagnostic imaging of heart and coronary circulation; I10 Essential (primary) hypertension
CPT/HCPCS: 93306

== ENCOUNTER 2023-08-10 13:15 | Outpatient (RCR) | payer BC, SELFPAY ==
--- NOTE | 2023-06-29 15:33 | OPREHPOC ---
Outpatient Therapy Plan of Care This is a Multidisciplinary Plan of Care that may contain components documented by all disciplines (PT, OT, and ST.) PT Problem 1 PT Problem #1 Knowledge Deficit PT Goal 1 Goal Patient to be independent with HEP Target Visit 8 PT Problem 2 PT Problem #2 Pain PT Goal 1 Goal Patient to report standing for more than 25 minutes without pain Target Visit 8 PT Problem 3 PT Problem #3 Impaired Functional Mobil PT Goal 1 Goal Patient will be able to work a full hour day without needing to take multiple breaks to rest. Target Visit 8 PT Goal 2 Goal Pt to demonstrate a functional lift and carry with 30lb without an increase in symptoms. Target Visit 8 PT Problem 4 PT Problem #4 Impaired Strength PT Goal 1 Goal Patient will strengthen core muscles in order to maintain a neutral pelvis and distribute her weight more evenly. Target Visit 8
--- NOTE | 2023-06-29 15:33 | PTOPEVAL1 ---
Assessment and note entered by Kamila Monroe, PT, DPT Evaluation Information Assessment Status Evaluation Diagnosis low back pain Subjective Information Pt states she has back pain and has for multiple months. She states the pain wraps around her low back to the front of both legs and radiates down her to legs. She states she cannot stand longer than 15-20 mins, but can be up on her feet is she is moving around for almost an hour. She states she had LE numbness for greater than a year, but the pain for going on 6 months. She states she also has a lot of difficulty walking up and down stairs. Pt works at [employer] and has been off work since February. Her job requires lots of standing. Reported Pain Level Pain Score 3: Self Report Assessment PT Clinical Summary Frida presents to PT today with lower back pain that has been occurring for over a year. She demonstrates a significant anterior pelvic tilt and knee hyperextension when standing. She distributes her body weight more anteriorly which manifests itself in excessive lumbar lordosis and thoracic kyphosis. Her abdominal muscles are weak and she struggles with engaging them when prompted . These deficits together limit her standing tolerance and overall functional mobility. Skilled therapy services are indicated to address the deficits noted above, to manage pain, and to return to PLOF. Plan of Care Interventions Electrical Stimulation,Gait Training,Hot Pack/Cold Pack,Manual Therapy,Mechanical Traction,Neuro Re- education,Patient/Caregiver Educati,Therapeutic Activities,Therapeutic Exercise PT Services Indicated Yes Treatment Frequency and 2x/wk for 8 visits Duration These treatments will address the objective and functional deficits as defined above. The patient will be advanced safely and appropriately in order for the patient to progress towards his/her prior level of function. Additional exercises will be introduced and as well as a comprehensive home exercise program upon discharge, if needed, ?to ensure carryover of functional gains achieved in the clinic. This treatment plan has been reviewed and agreement upon by the patient.
--- NOTE | 2023-07-06 15:24 | PCPTNOTE ---
Patient called to cancel due to flat tire.
--- NOTE | 2023-07-27 13:52 | PTOPPROG ---
Assessment and note entered by Kamila Monroe, PT, DPT Evaluation Information Assessment Status Progress Diagnosis low back pain Subjective Information Pt states she is feeling miserable today and has all week. She states her ankle, back, neck, and head are all hurting out of control today. She states she thinks it is from walking weird while at work. She states her karon ankles are stil swollen and sore from last week, she states her doctor thinks it is a heat rash, she thinks it is cellulitis. Pt states overall therapy has been a little bit helpful, she states she has learned how to stretch and move her body a little bit better. She states after traction she has very little pain for a couple of hours, but it gradually increases. Assessment PT Clinical Summary Frida presents to therapy today for her progress report following 7 visits of skilled therapy to treat her lower back pain that has been occurring for over a year. She continues to demonstrates decreased functional mobility and decreased activity tolerance, both limited d/t pain. She continues to report high levels of pain with functional activities. Continuation of skilled therapy services are indicated to address the deficits noted above, to manage pain, and to return to PLOF. Plan of Care Interventions Electrical Stimulation,Gait Training,Hot Pack/Cold Pack,Manual Therapy,Mechanical Traction,Neuro Re- education,Patient/Caregiver Educati,Therapeutic Activities,Therapeutic Exercise PT Services Indicated Yes Treatment Frequency and 1x/wk for 6 visits Duration These treatments will address the objective and functional deficits as defined above. The patient will be advanced safely and appropriately in order for the patient to progress towards his/her prior level of function. Additional exercises will be introduced and as well as a comprehensive home exercise program upon discharge, if needed, ?to ensure carryover of functional gains achieved in the clinic. This treatment plan has been reviewed and agreement upon by the patient.
--- NOTE | 2023-08-17 13:40 | PCPTNOTE ---
Patient called stating she needs to cancel due to her legs swelling with potential blood clot.
--- NOTE | 2023-08-24 13:40 | PCPTNOTE ---
Patient no showed to appointment this date. Called patient with answer.
--- NOTE | 2023-09-25 15:02 | PTOPDC ---
Assessment and note entered by Kaiden Larosn, PT Evaluation Information Assessment Status Discharge - Pt Not Present Diagnosis low back pain Subjective Information Pt states she is feeling miserable today and has all week. She states her ankle, back, neck, and head are all hurting out of control today. She states she thinks it is from walking weird while at work. She states her karon ankles are still swollen and sore from last week, she states her doctor thinks it is a heat rash, she thinks it is cellulitis. Pt states overall therapy has been a little bit helpful, she states she has learned how to stretch and move her body a little bit better. She states after traction she has very little pain for a couple of hours, but it gradually increases. Assessment PT Clinical Summary Therapy reached out to patient to follow up with past two cancellations and no shows. Patient has not returned contact with therapy at this time and will be discharged to [facility]. Please refer to last progress note for discharge status. Plan of Care PT Services Indicated D/C to [facility]
== END 2023-09-25 15:31 | disposition home or self-care (01) ==
LOC: ANHGOSHPT 13:15
PROVIDERS: PCP Nurse Practitioner Family; Visit Provider Nurse Practitioner Family
DX: M54.50 Low back pain, unspecified (principal); M79.604 Pain in right leg; M79.605 Pain in left leg
CPT/HCPCS: 97012; 97110; 97140; 97161; 97530; 99199